=== PATIENT | male | born 1945 | race Caucasian/White ===

== ENCOUNTER → 2018-08-19 09:48 | Outpatient (CLI) | payer MEDICARE, OTHER | END | disposition home or self-care (01) | LOC: D.US 08-12 10:30 | PROVIDERS: ATTEND Internal Medicine Nephrology | DX: I10 Essential (primary) hypertension (principal); N17.9 Acute kidney failure, unspecified; E11.69 Type 2 diabetes mellitus with other specified complication; Z68.37 Body mass index [BMI] 37.0-37.9, adult ==